=== PATIENT | male | born 1995 | race Caucasian/White ===

== ENCOUNTER 2016-12-30 21:37 | Emergency (ER) | payer OTHER ==
[2016-12-30 21:53] VITALS: BP 134/86; PULSE 102; TEMP 98.7; BMI 27.3
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
[2016-12-30 23:46] LABS: BASOPHIL 0.7 % (0-2.0); EOSINOPHIL 5.3 % (0-4.5); MCH 30.2 pg (25.7-33.7); MCHC 34.2 g/dl (32.0-35.9); MEAN CELL VOLUME 88.2 fl (80-96); MEAN PLT VOLUME 8.1 fl (7.5-11.1); NEUTROPHILS 59.3 % (42.8-82.8); PLATELET COUNT 171 K/MM3 (134-434); RDW 12.9 % (11.9-15.9); WHITE BLOOD COUNT 8.7 K/mm3 (4.0-10.0)
[2016-12-31 01:22] LABS: HIV 1 & 2 AB NEGATIVE; HIV 1 AGp24 NEGATIVE
[2016-12-31 01:41] LABS: ALBUMIN 4.6 g/dl (3.4-5.0); ANION GAP 11 (8-16); CALCIUM 9.6 mg/dL (8.5-10.1); CHOLESTEROL 157 mg/dL (50-200); CO2 28 mmol/L (21-32); COCKROFT - GAULT 153.34; CREATININE 1.1 mg/dL (0.7-1.3); GLUCOSE,RANDOM 84 mg/dL (74-106); LDH 183 U/L (87-241); PHOSPHOROUS 3.7 mg/dL (2.5-4.9); SGOT/AST 15 U/L (15-37); SGPT/ALT 30 U/L (12-78); TOT PROT 7.7 g/dl (6.4-8.2)
[2016-12-31 01:43] LABS: ALK PHOS 67 U/L (45-117); BILIRUBIN,TOTAL 0.6 mg/dL (0.2-1.0)
[2016-12-31 01:56] LABS: URIC ACID 5.8 mg/dL (2.6-7.2)
[2017-01-03 14:18] LABS: HEP B SURFACE AB Non Reactive (.)
== END 2016-12-30 23:27 | disposition home or self-care (01) ==
LOC: JER 21:37
DX: Z77.21 Contact with and (suspected) exposure to potentially hazardous body fluids (principal); X58.XXXA Exposure to other specified factors, initial encounter; Y93.89 Activity, other specified; Y92.238 Other place in hospital as the place of occurrence of the external cause; Y99.0 Civilian activity done for income or pay
CPT/HCPCS: 36415; 80053; 82465; 82977; 83615; 84100; 84478; 84550; 85025; 86704; 86706; 86803; 87340; 87389; 99281-25

== ENCOUNTER 2017-04-01 08:06 | Emergency (ER) | payer OTHER ==
[2017-04-01 08:12] VITALS: BP 130/83; PULSE 77; BMI 27.3
--- NOTE | 2017-04-01 08:54 | PDOC ---
History of Present Illness - General Chief Complaint: Abscess Boil Stated Complaint: BOIL Time Seen by Provider: 04/01/17 08:22 History Source: Patient Exam Limitations: No Limitations - History of Present Illness Initial Comments: 04/01/17 08:54 22 yr male with no medical history presents with abscess to her upper back for 4 days. no fever or chills. Severity: Yes: mild Location: reports: torso (upper back ) Past History - Past Medical History Allergies/Adverse Reactions: Allergies Allergy/AdvReac Type Severity Reaction Status Date / Time No Known Allergies Allergy Verified 04/01/17 08:12 Home Medications: Ambulatory Orders Ibuprofen [Motrin] 800 mg PO QID #20 tablet 12/05/11 - Immunization History Immunization Up to Date: Yes - Psycho/Social/Smoking Cessation Hx Anxiety: No Suicidal Ideation: No Smoking Status: No Smoking History: Never smoked Number of Cigarettes Smoked Daily: 0 Hx Alcohol Use: Yes (SOCIAL) Drug/Substance Use Hx: No Substance Use Type: None Review of Systems - Review of Systems Able to Perform ROS?: Yes Is the patient limited Mongolian proficient: No Constitutional: No: Symptoms Reported HEENTM: No: Symptoms Reported Respiratory: No: Symptoms reported Cardiac (ROS): No: Symptoms Reported ABD/GI: No: Symptoms Reported : No: Symptoms Reported Musculoskeletal: No: Symptoms Reported Integumentary: Yes: See HPI *Physical Exam - Vital Signs Last Vital Signs Temp Pulse Resp BP Pulse Ox 77 18 130/83 100 04/01/17 08:10 04/01/17 08:10 04/01/17 08:10 04/01/17 08:10 - Physical Exam General Appearance: Yes: Nourished HEENT: positive: EOMI, VERO Neck: positive: Supple Respiratory/Chest: positive: Lungs Clear, Normal Breath Sounds Cardiovascular: positive: Regular Rhythm, Regular Rate Integumentary: positive: Other (left upper back with fluctuant abscess [id number] ) Neurologic: positive: Normal Response, Motor Strength 5/5 Procedures - Incision and Drainage I&D Site: Left: Other (upper back ) Betadine cleansed: Yes Anesthesia: 1% Lidocaine Blade Size: 10 Attempts: 1 Iodinated Packin/4 in Plain Packing: Yes Complications: none Dressing: Yes Medical Decision Making - Medical Decision Making 04/01/17 08:57 cc: abscess upper back left side abscess drained with copious amounts of drainage, wound culture obtained packed and dressed , will return in 24hrs for packing removal *DC/Admit/Observation/Transfer Diagnosis at time of Disposition: Abscess - Discharge Dispostion Disposition: HOME Condition at time of disposition: Good - Patient Instructions Printed Discharge Instructions: DI for Incision and Drainage of a Skin Abscess Additional Instructions: return in 24 hrs for packing removal take tylenol for pain as needed do not get wet
[2017-04-01 08:58] VITALS: TEMP 98.2
== END 2017-04-01 08:49 | disposition home or self-care (01) ==
LOC: JERFT 08:06
PROC: 0H96XZZ Drainage of Back Skin, External Approach (ICD-10-PCS; principal; 2017-04-01)
DX: L02.212 Cutaneous abscess of back [any part, except buttock and flank] (principal)
CPT/HCPCS: 87070; 87205; 99281-25

== ENCOUNTER 2017-04-02 07:54 | Emergency (ER) | payer OTHER ==
[2017-04-02 07:57] VITALS: BP 140/85; PULSE 77; TEMP 98.5; BMI 27.3
--- NOTE | 2017-04-02 08:14 | PDOC ---
Suture Removal/Wound Check HPI - History of Present Illness Chief Complaint: Revisit,Wound Recheck Stated Complaint: WOUND CHECK Time Seen by Provider: 04/02/17 08:06 History Source: Yes: Patient Exam Limitations: Yes: No Limitations Treated at: [facility] Date of Last ED visit: 04/01/17 - Previous ED Treatment Type of procedure performed on last visit: Yes: I&D of Abscess Tetanus Immunization: Yes: Up to Date Antibiotics Prescribed: No Past History - Past Medical History Allergies/Adverse Reactions: Allergies No Known Allergies Allergy (Verified 04/02/17 07:58) Home Medications: Ambulatory Orders NK [No Known Home Medication] 04/02/17 General: Yes: no pertinent history Surgical History: Yes: No Surgical History - Family History Significant Family History: Yes: no pertinent family hx - Immunization History Immunizations Up to Date: Yes - Social History Smoking History: No Smoking Status: Never smoked Number of Ciarettes Per Day: 0 Alcohol Use: none Drug Use: none Suture Removal/Wound Check PE - Physical Exam Laceration/Wound Check Symptoms: reports: None Comments: 04/02/17 08:35 upper back left side with packing to be removed placed yesterday no redness, scant drainage *Review of Systems - Review of Systems Able to Perform ROS?: Yes Constitutional: No: Symptoms Reported HEENTM: No: Symptoms Reported Respiratory: No: Symptoms reported Cardiac (ROS): No: Symptoms Reported ABD/GI: No: Symptoms Reported : No: Symptoms Reported Musculoskeletal: No: Symptoms Reported Integumentary: Yes: See HPI Medical Decision Making - Medical Decision Making 04/02/17 08:36 cc: packing removal from abscess drained yesterday pt states no pain much improved scant drainage packing removed and redressed with sterile gauze *DC/Admit/Observation/Transfer Diagnosis at time of Disposition: Wound check, abscess - Discharge Dispostion Disposition: HOME Condition at time of disposition: Good - Patient Instructions Additional Instructions: keep clean and dry you may get wet later tonight make sure your dry completely keep covered if any oozing
== END 2017-04-02 08:36 | disposition home or self-care (01) ==
LOC: JERFT 07:54
DX: Z04.1 Encounter for examination and observation following transport accident (principal)
CPT/HCPCS: 99281-25

== ENCOUNTER 2019-08-14 08:09 | Emergency (ER) | payer OTHER ==
--- NOTE | 2019-08-14 08:45 | PDOC ---
History of Present Illness - General Chief Complaint: Injury Stated Complaint: SPRAINED ANKLE Time Seen by Provider: 08/14/19 08:30 History Source: Patient Exam Limitations: No Limitations - History of Present Illness Initial Comments: 08/14/19 08:40 Patient is a 24-year-old male with no past medical history who presents to the ED with complaint of a right ankle injury. He states yesterday while playing basketball he had an inversion injury. He has been walking on it since. He states he has no pain to touch but it hurts slightly medially and laterally when he walks on it. He denies any numbness or tingling. He presents today walking normally and in a normal street shoe. Past History - Past Medical History Allergies/Adverse Reactions: Allergies Allergy/AdvReac Type Severity Reaction Status Date / Time No Known Allergies Allergy Verified 04/02/17 07:58 Home Medications: Ambulatory Orders NK [No Known Home Medication] 04/02/17 COPD: No - Immunization History Immunization Up to Date: Yes - Psycho Social/Smoking Cessation Hx Smoking Status: No Smoking History: Never smoked Have you smoked in the past 12 months: No Number of Cigarettes Smoked Daily: 0 Information on smoking cessation initiated: No Hx Alcohol Use: Yes (social) Drug/Substance Use Hx: No Substance Use Type: None Review of Systems - Review of Systems Comments:: 08/14/19 08:41 - Review of Systems Able to Perform ROS?: Yes Constitutional: No: Fever, Chills Respiratory: No: Cough, Shortness of Breath, Wheezing, Sputum Production Cardiac (ROS): No: Chest Pain, Chest Tightness, Palpitations ABD/GI: No: Nausea, Vomiting, Abdominal Pain, Diarrhea Musculoskeletal: No: Muscle Pain, Back Pain, Muscle Weakness, Neck Pain; Positive: R ankle pain Integumentary: No: Lesions, Rash Neurological: No: Headache, Numbness, Tingling, Weakness *Physical Exam - Vital Signs Last Vital Signs Temp Pulse Resp BP Pulse Ox 98.5 F 79 18 128/70 100 08/14/19 08:24 08/14/19 08:24 08/14/19 08:24 08/14/19 08:24 08/14/19 08:24 - Physical Exam 08/14/19 08:42 - Physical Exam General Appearance: Nourished, Appropriately Dressed, No Distress Neck: Supple, No Decreased range of motion Respiratory/Chest: No Respiratory Distress, No Accessory Muscle Use Cardiovascular: Regular Rhythm, Regular Rate Gastrointestinal/Abdominal: Soft. Non-tender Musculoskeletal: No Decreased Range of Motion, Minimal tenderness to palpation over the anterior talofibular ligament, no step-off, no crepitus, FROM without any pain, DP pulse 2+, Brisk capillary refill distally Extremity: Normal Capillary Refill, Normal Inspection Integumentary: Normal Color, Dry. No Rash Neurologic: Fully Oriented, Alert, Normal Mood/Affect, Normal Response, Sensation intact to light touch b/l LE. ED Treatment Course - RADIOLOGY Radiology Studies Ordered: Category Date Time Status ANKLE-RIGHT [RAD] Stat Radiology 08/14/19 08:39 Ordered Medical Decision Making - Medical Decision Making 08/14/19 09:37 Patient's x-rays negative for acute pathology.We will place him in an Aircast and have him weight-bear as tolerated in the Aircast. He should follow-up with orthopedics or his primary doctor within 1 to 2 days for repeat evaluation. He can take Tylenol or ibuprofen for pain. The patient understands and agrees with treatment plan he is stable for discharge. Discharge - Discharge Information Problems reviewed: Yes Clinical Impression/Diagnosis: Right ankle sprain Qualifiers: Encounter type: initial encounter Involved ligament of ankle: other ligament Qualified Code(s): S93.491A - Sprain of other ligament of right ankle, initial encounter Condition: Stable Disposition: HOME - Follow up/Referral Referrals: [facility] [Provider Group] Tad Heller DO [Staff Physician] - - Patient Discharge Instructions Patient Printed Discharge Instructions: Ankle Sprain Additional Instructions: Ice and elevate your right ankle. Wear the Aircast as needed to support your ankle. Take Tylenol or ibuprofen for any ankle pain. Follow-up with orthopedics within 1 week for repeat evaluation. Orthopedics referral given. - Post Discharge Activity Work/Back to School Note: Back to Work
[2019-08-14 09:04] VITALS: BP 128/70; PULSE 79; TEMP 98.5; BMI 26.7
== END 2019-08-14 09:54 | disposition home or self-care (01) ==
LOC: JERFT 08:09 → JER 08:09 → JERFT 09:54
PROC: 2W3QX1Z Immobilization of Right Lower Leg using Splint (ICD-10-PCS; principal; 2019-08-14)
DX: S93.491A Sprain of other ligament of right ankle, initial encounter (principal); X58.XXXA Exposure to other specified factors, initial encounter; Y93.89 Activity, other specified; Y92.89 Other specified places as the place of occurrence of the external cause
CPT/HCPCS: 73610-TC-RT-FY; 99281-25

== ENCOUNTER 2021-09-07 21:20 | Emergency (ER) | payer OTHER ==
[2021-09-07 21:31] VITALS: BP 151/95; PULSE 78; TEMP 98.1; BMI 30.4
[2021-09-07] MEDS ORDERED: LIDOCAINE PATCH REMOVAL MC SCH (22:00)
[2021-09-07] MEDS ORDERED: KETOROLAC TROMETHAMINE 30 MG/1 ML VIAL IM ONE (22:28)
[2021-09-07] MEDS ORDERED: LIDOCAINE 5% TOPICAL PATCH TP ONE (22:28)
[2021-09-07] MEDS ORDERED: LIDOCAINE 5% TOPICAL PATCH ONE (22:30)
[2021-09-07] MEDS ORDERED: KETOROLAC TROMETHAMINE 30 MG/1 ML VIAL ONE (22:30)
== END 2021-09-07 23:12 | disposition home or self-care (01) ==
LOC: JER 21:20 → JERFT 21:20
PROC: 3E0233Z Introduction of Anti-inflammatory into Muscle, Percutaneous Approach (ICD-10-PCS; principal; 2021-09-07)
DX: M54.6 Pain in thoracic spine (principal)
CPT/HCPCS: 96372; 99284-25